=== PATIENT | female | born 1955 | race Caucasian/White ===

== ENCOUNTER 2017-04-01 14:12 | Emergency (ER) | payer OTHER ==
[~2017-04-01] VITALS: Ht 167.6 cm; Wt 111.1 kg
[2017-04-01 15:22] LABS: POINT-OF-CARE METER ID UU14100415
[2017-04-01 15:31] LABS: HEMATOCRIT 49.6 % (36.0-46.0); MCH 28.6 PG (29.0-34.0); MCHC 33.7 G/DL (30.0-36.0); MCV 85.1 FL (83-99); MEAN PLAT.VOLUME 9.7 uM^3 (9.5-12.4); PLATELET COUNT 263 K/uL (156-360); RBC DIS.WIDTH-CV 13.2 % (11.8-14.6); RBC DIS.WIDTH-SD 40.4 % (39-53); RED BLOOD COUNT 5.83 M/uL (3.80-5.20)
[2017-04-01 15:41] LABS: CHLORIDE 104 mEq/L (99-109); POTASSIUM 4.3 mEq/L (3.7-5.4); SODIUM 138 mEq/L (136-147)
[2017-04-01 15:42] LABS: GLUCOSE 181 mg/dL (70-99)
[2017-04-01 15:44] LABS: ANION GAP 12 MEQ/L (2-14)
[2017-04-01 15:47] LABS: UREA NITROGEN (BUN) 15 mg/dL (9-23)
[2017-04-01 15:48] LABS: GFR ESTIMATE (CALCULATED) > 59 mL/min/
[2017-04-01 17:45] VITALS: BP 132/77
== END 2017-04-01 17:55 | disposition home or self-care (01) ==
LOC: EME 14:12
PROVIDERS: Emergency Medicine
DX: E86.0 Dehydration (principal); G43.909 Migraine, unspecified, not intractable, without status migrainosus; Z87.891 Personal history of nicotine dependence
CPT/HCPCS: 70450; 80048; 85027; 99281; 99285; J1200; J1885; J2765; J7030